=== PATIENT | female | born 1945 | race Caucasian/White ===

== ENCOUNTER 2016-08-05 08:56 | Emergency (ER) | payer MEDICARE ==
[~2016-08-05] VITALS: Ht 160 cm; Wt 48.0 kg
[2016-08-05 09:02] VITALS: BP 152/88; PULSE 105; RESP 16; TEMP 98.6; O2SAT 96
[2016-08-05] MEDS ORDERED: LEVO75TA3 PO (09:17)
[2016-08-05] MEDS ORDERED: FLUT1SPR5 EACH NARE (09:17)
[2016-08-05] MEDS ORDERED: THERSOL2 EACH EYE (09:18)
[2016-08-05] MEDS ORDERED: RANI150T PO (09:18)
[2016-08-05] MEDS ORDERED: DIAZ5TAB PO (09:18)
[2016-08-05] MEDS ORDERED: ESTR0.5T PO (09:18)
--- NOTE | 2016-08-05 09:35 | PD ---
HPI Chief Complaint: Skin Problem Time Seen by Provider: 09:09 Travel History International Travel<30 days: No Contact w/Intl Traveler<30days: No Traveled to known affect area: No History of Present Illness HPI This 70 year-old woman presents emergent heart complaining of a skin tear on her left arm. This happened yesterday when a small cart fell on her arm. 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 She came in today is a little sore. She was also worried about the size of the skin tear. She otherwise has been feeling well and healthy. History of fibromyalgia. No other complaints. History Past Medical History Narrative Medical Fibromyalgia Social History Alcohol Use: No Tobacco Use: No Allergies-Medications (Allergen,Severity, Reaction): Coded Allergies: Tetracycline (Verified Allergy, Severe, 08/05/16) Codeine (Verified Allergy, Unknown, 08/05/16) Morphine (Verified Allergy, Unknown, 08/05/16) Reported Meds & Prescriptions Reported Meds & Active Scripts Active Reported Diazepam 5 Mg Tab 2.5 Mg PO HS PRN Estradiol 0.5 Mg Tab 0.5 Mg PO DAILY Ranitidine (Ranitidine HCl) 150 Mg Tab 150 Mg PO DAILY Theratears Unit-Dose Opth Drops (Carboxymethylcellulose Sodium Opth Drops) 0.25 % Soln 1 Drop EACH EYE Q4H PRN Flonase Nasal Drumore (Fluticasone Nasal [place]ore) 50 Mcg/Act [place]ore 50 Mcg EACH NARE BID Levothyroxine (Levothyroxine Sodium) 75 Mcg Tab 75 Mcg PO DAILY Review of Systems Except as stated in HPI: all other systems reviewed are Neg Physical Exam Narrative GENERAL: 70 year-old woman, no acute distress. SKIN: Warm and dry. CARDIOVASCULAR: Warm and well perfused. RESPIRATORY: Normal rate and effort. MUSCULOSKELETAL: Small skin tear in the left arm, approximately 3-4 cm. Skin flap is been reapproximated already. NEUROLOGICAL: Awake and alert. No gross deficits. Data Data Last Documented VS Vital Signs Date Time Temp Pulse Resp B/P Pulse Ox O2 Delivery O2 Flow Rate FiO2 08/05/16 09:02 98.6 105 16 152/88 96 MDM Medical Decision Making Medical Screen Exam Complete: Yes Emergency Medical Condition: Yes Differential Diagnosis Skin tear, laceration, contusion, other Narrative Course Medical decision making 71-year-old woman was congenital left arm. We'll bandaged already. She is tending to this perfectly. We'll recommend nonstick dressing, continue local wound care. Diagnosis Primary Impression: Skin tear of left upper arm without complication Additional Instructions: Continue local wound care as discussed. Apply antibiotic ointment to wound daily. Wash gently with soap and water. Apply nonstick dressing to wound until skin has healed. Med/Other Pt SpecificInfo: No Change to Meds Disposition: 01 DISCHARGE HOME Condition: Stable Tommy Infante MD Aug 05, 2016 09:35
== END 2016-08-05 09:57 | disposition home or self-care (01) ==
LOC: PHED 08:56
DX: S40.812A Abrasion of left upper arm, initial encounter (principal); M79.7 Fibromyalgia; W45.8XXA Other foreign body or object entering through skin, initial encounter; Y93.9 Activity, unspecified; Y92.9 Unspecified place or not applicable; Y99.8 Other external cause status
CPT/HCPCS: 99282